=== PATIENT | female | born 1975 | race Caucasian/White ===

== ENCOUNTER → 2021-05-22 | Outpatient (CLI) | payer OTHER | LOC: MHCPAIN 12:17 | DX: M47.816 Spondylosis without myelopathy or radiculopathy, lumbar region (principal); M54.50 Low back pain, unspecified; M53.3 Sacrococcygeal disorders, not elsewhere classified | CPT/HCPCS: G0463 ==

== ENCOUNTER 2024-02-20 13:49 | Emergency (ER) | payer OTHER ==
[~2024-02-20] VITALS: Ht 167.6 cm; Wt 75.0 kg
[2024-02-20 13:55] VITALS: TEMP 97.8
[2024-02-20] MEDS ORDERED: dexAMETHasone 10 MG/ML VIAL IM ONE (14:30)
[2024-02-20] MEDS ORDERED: NORFLEX 10100 MG/TAB PO (15:29)
[2024-02-20] MEDS ORDERED: MEDROL 4MG DOSPA4 MG PO (15:29)
[2024-02-20 15:47] VITALS: BP 97/68; PULSE 62
== END 2024-02-20 15:48 | disposition home or self-care (01) ==
LOC: COL.ER 13:49
DX: M54.17 Radiculopathy, lumbosacral region (principal); F17.200 Nicotine dependence, unspecified, uncomplicated
CPT/HCPCS: J1100; J2360